=== PATIENT | male | born 1960 | race Caucasian/White ===

== ENCOUNTER → 2018-02-18 | Outpatient (CLI) | payer BC | LOC: COL.RAD 08:23 | DX: R10.9 Unspecified abdominal pain (principal) | CPT/HCPCS: Q9967 ==

== ENCOUNTER 2022-06-17 09:07 | Day surgery (SDC) | payer BC ==
[~2022-06-17] VITALS: Ht 182.9 cm; Wt 80.4 kg
[2022-06-17 11:00] VITALS: BP 118/82; PULSE 54; TEMP 96.4
[2022-06-17 11:15] VITALS: BP 123/87; PULSE 50
[2022-06-17 11:30] VITALS: BP 126/80; PULSE 50
[2022-06-17 11:45] VITALS: BP 121/70; PULSE 54
--- NOTE | 2022-06-17 12:03 | NUR ---
1100 RETURNS TO ROOM 6 PER CART. AWAKE, ALERT. AMBULATES FROM CART TO RECLINER WITH STANDBY ASSIST. FEET ELEVATED. VITAL SIGNS OBTAINED. DENIES NAUSEA OR ABD PAIN. IN ROOM. 1107 TOLERATES WATER AND MUFFIN WITHOUT NAUSEA. 1125 DR. TERRY HERE TO VISIT WITH PATIENT. 1145 DISCHARGE INSTRUCTIONS REVIEWED. PATIENT VERBALIZES UNDERSTANDING. COPY OF INSTRUCTIONS PROVIDED IN DISCHARGE FOLDER. 1150 DRESSES SELF. 1203 DISCHARGED PER WHEELCHAIR TO VEHICLE DRIVEN BY
== END 2022-06-17 12:03 | disposition home or self-care (01) ==
LOC: SDCO 09:07
DX: D12.3 Benign neoplasm of transverse colon (principal); K57.30 Diverticulosis of large intestine without perforation or abscess without bleeding; K64.0 First degree hemorrhoids
CPT/HCPCS: J2704; J7120